=== PATIENT | male | born 1955 | race Caucasian/White ===

== ENCOUNTER → 2021-09-07 13:11 | Outpatient (CLI) | payer MEDICARE, SELFPAY ==
[2021-09-07 13:04] LABS: Basophils # 0.1 K/mm3 (0-0.2); Basophils % 1.2 % (0.1-2.0); Eosinophils # 0.1 K/mm3 (0.0-0.4); Eosinophils % 1.4 % (0.1-12.0); Hematocrit 49.2 % (42.0-52.0); Hemoglobin 15.6 g/dL (14.1-18.0); Lymphocytes # 1.4 K/mm3 (0.7-4.5); Lymphocytes % 21.5 % (10-50); Mean Corpuscular HGB Conc 31.6 g/dL (31.8-35.4); Mean Corpuscular Hemoglobin 31.4 pg (27.0-31.2); Mean Corpuscular Volume 99.3 fl (80-94); Mean Platelet Volume 9.3 fl (7.4-10.4); Monocytes # 0.5 K/mm3 (0.1-1.0); Monocytes % 7.4 % (1.7-9.3); Neutrophils # 4.4 K/mm3 (1.8-7.8); Neutrophils % 68.5 % (37.0-80.0); Platelet Count 227 K/mm3 (142-424); Red Blood Count 4.96 M/mm3 (4.60-6.20); Red Cell Distribution Width 13.8 % (11.5-17.5); White Blood Count 6.5 K/mm3 (4.8-10.8)
[2021-09-07 13:09] LABS: Alanine Aminotransferase 26 U/L (12-78); Albumin/Globulin Ratio 1.7 (1.1-1.8); Alkaline Phosphatase 65 U/L (38-126); Anion Gap 9.3 mEq/L (5-15); Aspartate Amino Transferase 25 U/L (17-59); Bilirubin,Total 0.5 mg/dl (0.2-1.3); Blood Urea Nitrogen 14 mg/dl (9-20); Calcium 9.6 mg/dl (8.4-10.2); Carbon Dioxide 28 mmol/L (22.0-30.0); Chloride 104 mmol/L (98-107); Chol/HDL Ratio 3.3 (1-3.5); Cholesterol 150 mg/dl (140-200); Estimated Glomerular Filt Rate 96 ml/min (>60); GFR (African American) 117 ML/MIN (>60); Globulin 2.3 g/dL (1.3-3.2); Glucose 143 mg/dl (74-100); HDL Cholesterol 46 mg/dl (40-60); Potassium 4.3 mmoL/L (3.5-5.1); Sodium 137 mmol/L (136-145); Total Protein,Serum 6.3 g/dl (6.3-8.2); Triglycerides 156 mg/dl (30-150); VLDL Cholesterol 31 mg/dL (0-40)
[2021-09-07 13:31] LABS: Hemoglobin A1C 5.7 % (4.0-6.0)
[2021-09-07 13:40] LABS: Prostate Specific Ag Screen 1.4 ng/ml (0.0-4.0)
== END ==
PROVIDERS: PCP Family Medicine; Visit Provider Family Medicine
DX: E11.9 Type 2 diabetes mellitus without complications (principal); M25.512 Pain in left shoulder; Z12.5 Encounter for screening for malignant neoplasm of prostate; Z79.84 Long term (current) use of oral hypoglycemic drugs
CPT/HCPCS: 80053; 80061; 83036; 85025; G0103

== ENCOUNTER → 2021-09-19 16:29 | Outpatient (CLI) | payer MEDICARE, SELFPAY ==
--- NOTE | 2021-09-19 17:32 | MR_ITS ---
PROCEDURE INFORMATION: Exam: MR Left Upper Extremity Joint Without Contrast; Shoulder Exam date and time: 09/19/2021 5:38 PM Age: 65 years old Clinical indication: Pain; Shoulder; Left; Additional info: Joint de. Dislocated shoulder 2months ago. Limited rom. TECHNIQUE: Imaging protocol: Magnetic resonance imaging of the Left upper extremity without contrast. Exam focused on the shoulder. COMPARISON: No relevant prior studies available. FINDINGS: Bones and cartilage: The humeral head is superiorly subluxed. The shoulder is imaged in external rotation. There is no acute fracture or dislocation. No aggressive bone lesions are present. The undersurface of the acromion has a normal curvature, consistent with a type II acromion. Subchondral edema involving the anterior inferior glenoid suggests overlying cartilage damage that is beyond the resolution of the study. There is no convincing Hill-Sachs deformity of the posterosuperior humeral head in this patient status post dislocation, but assessment is somewhat limited due to prominent external rotation of the shoulder. Degenerative subchondral cysts involve the humeral head. Joint spaces: Moderate primary osteoarthritis involves the acromioclavicular joint. A mild effusion involves the glenohumeral joint. Joint fluid extends through the full thickness rotator cuff tear into the subacromial-subdeltoid bursa. Glenoid labrum: Abnormal signal and morphology of the labrum in a patient of this age likely represents degenerative tearing. Supraspinatus tendon: A full-thickness tear involves the majority of the supraspinatus tendon with a few of the far peripheral fibers potentially remaining intact. The tendon is retracted over 2 cm. Infraspinatus tendon: A full-thickness tear involves the entire infraspinatus tendon. The tendon is retracted over 2.5 cm. Subscapularis tendon: A full-thickness tear involving the subscapularis tendon allows the long head of the biceps tendon to dislocate into the joint. Teres minor tendon: Moderate tendinosis involves the teres minor tendon. Tendon of biceps brachii: Severe tendinosis involves the intra-articularly dislocated portion of the long head of the biceps tendon. Glenohumeral ligaments: Unremarkable as visualized. Muscles: The supraspinatus, infraspinatus, and subscapularis muscles demonstrate grade 4 (out of 4) muscle atrophy. Soft tissues: No focal fluid collection or suspicious mass. IMPRESSION: 1. Full-thickness tears of the supraspinatus, infraspinatus and subscapularis tendons with severe muscle atrophy. 2. Severe tendinosis of the intra-articularly dislocated long head of the biceps tendon. 3. 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 4. Abnormal signal and morphology of the glenoid labrum, likely representing degenerative tearing.
== END ==
PROVIDERS: PCP Family Medicine; Visit Provider Family Medicine
DX: M25.512 Pain in left shoulder (principal)
CPT/HCPCS: 73221